=== PATIENT | female | born 1975 | race African-American/Black ===

== ENCOUNTER 2017-03-20 22:10 | Emergency (ER) | payer OTHER ==
[~2017-03-20] VITALS: Ht 170.2 cm; Wt 68.0 kg
[~2017-03-20 22:10] MED LIST: NORCO 5-325 TA1 EACH ORAL; RANITIDINE HCL150 MG ORAL
[2017-03-20] MEDS ORDERED: NKM (22:14)
--- NOTE | 2017-03-20 22:38 | Emergency Room Report ---
History of Present Illness General Chief Complaint: Abdominal Pain Source: Patient Present Illness HPI Is a 41-year-old female with a history of ulcer. She presents with reported history of epigastric pain. Pain is severe 10 out of 10. Has nausea and vomiting. No diarrhea. Nothing made it better. Any movement made it worse. Eating made it worse. Similar symptom in the past. Denies any trauma. No drug use. No radiation. Allergies: Coded Allergies: No Known Allergies (Unverified , 01/23/16) Patient History Past Medical History: see triage record, old chart reviewed Past Surgical History: other Pertinent Family History: none Social History: Denies: alcohol use Last Menstrual Period: unk Now: No Immunizations: other Reviewed Nursing Documentation: PMH: Agreed, PSxH: Agreed Nursing Documentation-PMH Past Medical History: No History, Except For Hx Cardiac Problems: Yes - ANEMIA Hx Gastrointestinal Problems: Yes - ulcers Review of Systems Eye: Denies: blurred vision, eye pain ENT: Denies: ear pain, nose congestion, throat swelling Respiratory: Denies: cough, shortness of breath Cardiovascular: Denies: chest pain, palpitations Gastrointestinal: Reports: abdominal pain, nausea, vomiting, Denies: diarrhea Musculoskeletal: Denies: back pain, joint pain Skin: Denies: rash Neurological: Denies: headache, numbness Endocrine: Denies: increased thirst, increased urine Hematologic/Lymphatic: Denies: easy bruising All Other Systems: negative except mentioned in HPI Physical Exam Vital Signs Date Time Temp Pulse Resp B/P Pulse Ox O2 Delivery O2 Flow Rate FiO2 03/20/17 22:11 98.1 90 18 140/88 98 Room Air vitals normal Sp02 EP Interpretation: reviewed, normal General Appearance: well appearing, alert, moderate distress - From pain Head: normocephalic, atraumatic Eyes: bilateral eye EOMI, bilateral eye PERRL ENT: hearing grossly normal, normal pharynx Neck: full range of motion, supple, no meningismus Respiratory: chest non-tender, lungs clear, normal breath sounds Cardiovascular #1: regular rate, rhythm, no murmur Gastrointestinal: no mass, no organomegaly, no bruit, non-distended, abnormal bowel sounds - Hypoactive, tenderness - Epigastric Musculoskeletal: back normal, gait/station normal, normal range of motion Psychiatric: mood/affect normal Skin: warm/dry Medical Decision Making Diagnostic Impression: Primary Impression: Ureteral stone with hydronephrosis Additional Impressions: UTI (urinary tract infection) Qualified Codes: N30.00 - Acute cystitis without hematuria PCP abuse Anemia Qualified Codes: D64.9 - Anemia, unspecified Proteinuria Qualified Codes: R80.9 - Proteinuria, unspecified ER Course Patient presents with abdominal pain. She has ureteral stone with obstruction and UTI. Because of this she need to be admitted to the hospital. She is otherwise stable for transfer based on insurance. I discussed the case with Dr. Bautista who accepted pt for transfer. Laboratory Tests Test 03/20/17 22:35 03/20/17 23:30 Urine Color Brown Urine Appearance Slightly cloudy Urine pH 5 (4.5-8.0) Urine Specific [place] 1.025 (1.005-1.035) Urine Protein 2+ (NEGATIVE) H Urine Glucose (UA) Negative (NEGATIVE) Urine Ketones 2+ (NEGATIVE) H Urine Occult Blood 5+ (NEGATIVE) H Urine Nitrite Negative (NEGATIVE) Urine Bilirubin Negative (NEGATIVE) Urine Urobilinogen 4 MG/DL (0.0-1.0) H Urine Leukocyte Esterase 2+ (NEGATIVE) H Urine RBC 10-15 /HPF (0 - 2) H Urine WBC 5-10 /HPF (0 - 2) H Urine Squamous Epithelial Cells Few /LPF (NONE/OCC) Urine Bacteria Moderate /HPF (NONE) H Urine Yeast Few /HPF (NONE) H Urine HCG, Qualitative Negative Urine Opiates Screen Negative (NEGATIVE) Urine Barbiturates Screen Negative (NEGATIVE) Phencyclidine (PCP) Screen Positive (NEGATIVE) H Urine Amphetamines Screen Negative (NEGATIVE) Urine Benzodiazepines Screen Negative (NEGATIVE) Urine Cocaine Screen Negative (NEGATIVE) Urine Marijuana (THC) Screen Positive (NEGATIVE) H White Blood Count 14.2 K/UL (4.8-10.8) H Red Blood Count 4.48 M/UL (4.20-5.40) Hemoglobin 10.1 G/DL (12.0-16.0) L Hematocrit 32.5 % (37.0-47.0) L Mean Corpuscular Volume 72 FL (80-99) L Mean Corpuscular Hemoglobin 22.7 PG (27.0-31.0) L Mean Corpuscular Hemoglobin Concent 31.3 G/DL (32.0-36.0) L Red Cell Distribution Width 22.6 % (11.6-14.8) H Platelet Count 257 K/UL (150-450) Mean Platelet Volume 10.5 FL (6.5-10.1) H Neutrophils (%) (Auto) % (45.0-75.0) Lymphocytes (%) (Auto) % (20.0-45.0) Monocytes (%) (Auto) % (1.0-10.0) Eosinophils (%) (Auto) % (0.0-3.0) Basophils (%) (Auto) % (0.0-2.0) Sodium Level 137 mEQ/L (135-145) Potassium Level 3.9 mEQ/L (3.4-4.9) Chloride Level 100 mEQ/L (98-107) Carbon Dioxide Level 21 mEQ/L (20-30) Anion Gap 16 (5-15) H Blood Urea Nitrogen 8 mg/dL (7-23) Creatinine 0.6 mg/dL (0.5-0.9) Estimat Glomerular Filtration Rate > 60 mL/min (>60) Glucose Level 108 mg/dL (74-106) H Calcium Level 9.2 mg/dL (8.6-10.2) Total Bilirubin 0.4 mg/dL (0.0-1.2) Aspartate Amino Transf (AST/SGOT) 24 U/L (5-40) Alanine Aminotransferase (ALT/SGPT) 9 U/L (3-33) Alkaline Phosphatase 65 U/L (35-104) Total Protein 7.1 g/dL (6.6-8.7) Albumin 3.7 g/dL (3.5-5.2) Globulin 3.4 g/dL Albumin/Globulin Ratio 1.0 (1.0-2.7) Lipase 14 U/L (< 60) Lab Results Impression labs with UTI and leukocytosis Rhythm Strip Diag. Results Rhythm Strip Time: 01:46 EP Interpretation: yes Rate: 65 Rhythm: NSR CT/MRI/US Diagnostic Results CT/MRI/US Diagnostic Results : Imaging Test Ordered: CT abdomen and pelvis Impression Read by radiologist. 6 mm proximal left ureteral stone with perinephric stranding and hydronephrosis. Fibroid uterus. Last Vital Signs Date Time Temp Pulse Resp B/P Pulse Ox O2 Delivery O2 Flow Rate FiO2 03/20/17 22:11 98.1 90 18 140/88 98 Room Air Status: improved Disposition: XFER SHT-TRM HOSP Condition: Stable TEX BOURGEOIS M.D. Mar 20, 2017 22:38
[2017-03-20] MEDS ORDERED: HYDROmorphone 1mg/ml Carpuject IVP ONE (22:45)
[2017-03-20 22:52] LABS: APPEARANCE,URINE SLIGHTLY CLOUDY; KETONES,URINE 2+ (NEGATIVE); LEUKOCYTE ESTERASE ,URINE 2+ (NEGATIVE); NITRITE,URINE NEGATIVE (NEGATIVE); PH,URINE 5 (4.5-8.0); PROTEIN,URINE 2+ (NEGATIVE); UROBILINOGEN,URINE 4 MG/DL (0.0-1.0)
[2017-03-20 23:01] LABS: BACTERIA,URINE MODERATE /HPF; SQUAMOUS EPITHELIAL CELL,UR FEW /LPF (NONE/OCC); YEAST,URINE FEW /HPF
[2017-03-20] MEDS ORDERED: cefTRIAXone 1 GM in NS 55 ML IVPB ONE (23:15)
[2017-03-20 23:50] LABS: MEAN CORPUSCULAR HEMOGLOBIN 22.7 PG (27.0-31.0); MEAN CORPUSCULAR HGB CONC 31.3 G/DL (32.0-36.0); MEAN CORPUSCULAR VOLUME 72 FL (80-99); MEAN PLATELET VOLUME 10.5 FL (6.5-10.1); PLATELET COUNT 257 K/UL (150-450); RED BLOOD COUNT 4.48 M/UL (4.20-5.40); RED CELL DISTRIBUTION WIDTH 22.6 % (11.6-14.8); WHITE BLOOD COUNT 14.2 K/UL (4.8-10.8)
[2017-03-21] MEDS ORDERED: Pantoprazole Inj IVP ONE
[2017-03-21 00:07] LABS: ALANINE AMINOTRANSFERASE 9 U/L (3-33); ANION GAP 16 (5-15); ASPARTATE AMINO TRANSFERASE 24 U/L (5-40); CALCIUM 9.2 mg/dL (8.6-10.2); CARBON DIOXIDE 21 mEQ/L (20-30); CHLORIDE 100 mEQ/L (98-107); CREATININE 0.6 mg/dL (0.5-0.9); GLOMERULAR FILTRATION RATE > 60 mL/min (>60); HEMOLYSIS 38; LIPASE 14 U/L (< 60); POTASSIUM 3.9 mEQ/L (3.4-4.9); SODIUM 137 mEQ/L (135-145); TOTAL PROTEIN 7.1 g/dL (6.6-8.7)
[2017-03-21 00:55] VITALS: BP 88/54
[2017-03-21 01:36] VITALS: BP 83/58
[2017-03-21 03:51] VITALS: BP 83/58
--- NOTE | 2017-03-21 09:26 | Diagnostic Imaging Report ---
Indications: Abdominal pain Technique: Continuous helical CT imaging of the abdomen and pelvis was performed with automatic exposure control on a Siemens sensation [address] scanner. Axial, coronal, and sagittal images were reconstructed at 3 mm slice thickness. No oral or IV contrast was administered per requesting physician's order, despite no contraindications listed. CTDI volume(s): 10 mGy Total DLP: 474 mGy-cm Findings: Comparison: Abdominal ultrasound 01/23/16. A 5 mm stone proximal left ureter. Left renal collecting system mildly dilated. No adjacent stranding. No additional stones in either kidney or ureter, nor in the urinary bladder. Right renal collecting system and ureter normal caliber.. The appendix is unremarkable. The gastrointestinal tract is normal in caliber. No extraluminal gas or fluid collections are demonstrated, aside from minimal free fluid in the pelvis. Uterus is enlarged and may contain one or more masses. Scattered arterial mural calcifications. Vascular patency indeterminate. Remainder of visualized abdominopelvic anatomy demonstrates no other obvious abnormality, though lack of oral and IV contrast limits evaluation. Irregular pleural-based linear and patchy consolidative opacities lateral aspect of left lung base with associated volume loss. Right lung base clear. No focal skeletal abnormality identified.. IMPRESSION: 5 mm obstructing stone in proximal left ureter with mild hydronephrosis. Small amount pelvic free fluid, nonspecific, may be physiologic Unremarkable appendix -- no evidence of acute appendicitis. No other evidence of acute abdominopelvic disease. Lack of oral and IV contrast limits evaluation, however, and subtle abnormalities may be missed. Repeat CT scan with full oral and IV contrast preparation recommended for more complete evaluation, as clinically indicated. Enlarged uterus, possible fibroids Arteriosclerosis Left lung base subsegmental atelectasis versus scarring with volume loss, nonspecific This correlates with [facility] preliminary report. The CT scanner at [facility] is accredited by the [employer] and the scans are performed using protocols designed to limit radiation exposure to as low as reasonably achievable to attain images of sufficient resolution adequate for diagnostic evaluation.
== END 2017-03-21 03:00 | disposition short-term general hospital (02) ==
LOC: EDUNIT# 22:10 → EDBD 22:10 → EMR 22:50
DX: N13.2 Hydronephrosis with renal and ureteral calculous obstruction (principal); N39.0 Urinary tract infection, site not specified; F16.10 Hallucinogen abuse, uncomplicated; R80.9 Proteinuria, unspecified; D64.9 Anemia, unspecified
CPT/HCPCS: 36415; 74176; 80053; 80300; 81003; 81025; 83690; 85025; 87086; 96374; 96375; 99285; C9113; J0696; J1170; J2405

== ENCOUNTER 2018-04-16 18:08 | Emergency (ER) | payer OTHER ==
[~2018-04-16] VITALS: Ht 162.6 cm; Wt 59.0 kg
[~2018-04-16 18:08] MED LIST changes: +NKM
[2018-04-16 18:16] VITALS: BP 102/63
[2018-04-16 18:58] LABS: BASOPHILS % (AUTO) 3.1 % (0.0-2.0); EOSINOPHILS % (AUTO) 3.7 % (0.0-3.0); HEMATOCRIT 33.8 % (37.0-47.0); HEMOGLOBIN 9.7 G/DL (12.0-16.0); LYMPHOCYTES % (AUTO) 27.6 % (20.0-45.0); MEAN CORPUSCULAR VOLUME 69 FL (80-99); MONOCYTES % (AUTO) 6.6 % (1.0-10.0); PLATELET COUNT 243 K/UL (150-450); RED BLOOD COUNT 4.93 M/UL (4.20-5.40); RED CELL DISTRIBUTION WIDTH 24.5 % (11.6-14.8)
[2018-04-16 19:44] LABS: ANION GAP 8 mmol/L (5-15); BLOOD UREA NITROGEN 8 mg/dL (7-18); CALCIUM 9.2 MG/DL (8.5-10.1); CARBON DIOXIDE 24 MMOL/L (21-32); CHLORIDE 105 MMOL/L (98-107); CREATININE 0.5 MG/DL (0.55-1.30); POTASSIUM 5.1 MMOL/L (3.5-5.1); SODIUM 137 MMOL/L (136-145)
[2018-04-16 19:55] LABS: ALANINE AMINOTRANSFERASE 23 U/L (12-78); ALBUMIN 3.4 G/DL (3.4-5.0); ALBUMIN/GLOBULIN RATIO 0.9 (1.0-2.7); ALKALINE PHOSPHATASE 74 U/L (46-116); ASPARTATE AMINO TRANSFERASE 42 U/L (15-37); BILIRUBIN,TOTAL 0.4 MG/DL (0.2-1.0); CREATINE KINASE 165 U/L (26-308)
[2018-04-16 20:07] VITALS: BP 123/73
--- NOTE | 2018-04-16 22:37 | Emergency Room Report ---
History of Present Illness General Chief Complaint: Generalized Weakness Source: Patient, EMS Present Illness HPI Patient brought by EMS for generalized weakness. Has been worsening for 2 weeks. States not eating well. H/O anemia and not taking her meds. No active bleeding. States not . No fevers, pain, NVD, dysuria. On period now. No change in vision. She feels thirsty and dehydrated. This has happened before and she does not remember what caused this. No SI or HI. Denies prior psych meds. States occ alcohol, no drugs. In 2017 was admitted for ureteral stone with hydronephrosis and UTI. Allergies: Coded Allergies: No Known Allergies (Unverified , 01/23/16) Patient History Past Medical History: see triage record, old chart reviewed Social History: Reports: alcohol use; Denies: drug use - see tox Social History Narrative lives by herself Last Menstrual Period: N/A Reviewed Nursing Documentation: PMH: Agreed; PSxH: Agreed Nursing Documentation-PMH Past Medical History: No History, Except For Hx Cardiac Problems: Yes - ANEMIA Hx Hypertension: No - ANEMIA, BIPOLAR Hx Gastrointestinal Problems: Yes - ulcers Review of Systems All Other Systems: negative except mentioned in HPI Physical Exam Vital Signs Date Time Temp Pulse Resp B/P (MAP) Pulse Ox O2 Delivery O2 Flow Rate FiO2 04/16/18 18:03 98.4 81 18 99/74 99 Room Air 98.4 Sp02 EP Interpretation: reviewed, normal General Appearance: non-toxic, thin, other - slow to answer Head: normocephalic Eyes: bilateral eye PERRL, bilateral eye conjunctivae pale ENT: moist mucus membranes Neck: supple Respiratory: lungs clear, normal breath sounds Cardiovascular #1: regular rate, rhythm Cardiovascular #2: 2+ radial (R) Gastrointestinal: normal inspection, normal bowel sounds, non tender, no mass, non-distended Genitourinary: no CVA tenderness Musculoskeletal: back normal, gait/station normal, normal range of motion Neurologic: alert, motor strength/tone normal, DTRs symmetric, sensory intact, speech normal - slightly slurred, no Babinski, oriented - X2 Psychiatric: no suicidal/homicidal ideation, depressed affect Skin: normal inspection, warm/dry Medical Decision Making Diagnostic Impression: Primary Impression: PCP abuse Additional Impressions: Episode of generalized weakness Anemia Qualified Codes: D50.9 - Iron deficiency anemia, unspecified Elevated TSH ER Course Patient with generalized weakness. DDx: anemia, electrolyte abnormalities, dehydration, viral syndrome, drug abuse, occult infection. Non-focal neuro therefore CT of head not indicated. Evaluation with EKG, labs. Treatment with IV hydration and cardiac monitoring. EKG without injury. Labs with anemia, slightly low TSH. Patient improved with observation and able to ambulate to bathroom unassisted. More awake. Denies SI or HI. Patient signed out to Dr. French before urine results. Laboratory Tests Test 04/16/18 18:50 White Blood Count 9.0 K/UL (4.8-10.8) Red Blood Count 4.93 M/UL (4.20-5.40) Hemoglobin 9.7 G/DL (12.0-16.0) L Hematocrit 33.8 % (37.0-47.0) L Mean Corpuscular Volume 69 FL (80-99) L Mean Corpuscular Hemoglobin 19.7 PG (27.0-31.0) L Mean Corpuscular Hemoglobin Concent 28.7 G/DL (32.0-36.0) L Red Cell Distribution Width 24.5 % (11.6-14.8) H Platelet Count 243 K/UL (150-450) Mean Platelet Volume 6.7 FL (6.5-10.1) Neutrophils (%) (Auto) 59.0 % (45.0-75.0) Lymphocytes (%) (Auto) 27.6 % (20.0-45.0) Monocytes (%) (Auto) 6.6 % (1.0-10.0) Eosinophils (%) (Auto) 3.7 % (0.0-3.0) H Basophils (%) (Auto) 3.1 % (0.0-2.0) H Sodium Level 137 MMOL/L (136-145) Potassium Level 5.1 MMOL/L (3.5-5.1) Chloride Level 105 MMOL/L (98-107) Carbon Dioxide Level 24 MMOL/L (21-32) Anion Gap 8 mmol/L (5-15) Blood Urea Nitrogen 8 mg/dL (7-18) Creatinine 0.5 MG/DL (0.55-1.30) L Estimate Glomerular Filtration Rate > 60 mL/min (>60) Glucose Level 84 MG/DL (74-106) Calcium Level 9.2 MG/DL (8.5-10.1) Total Bilirubin 0.4 MG/DL (0.2-1.0) Aspartate Amino Transferase (AST) 42 U/L (15-37) H Alanine Aminotransferase (ALT) 23 U/L (12-78) Alkaline Phosphatase 74 U/L (46-116) Total Creatine Kinase 165 U/L (26-308) Total Protein 7.3 G/DL (6.4-8.2) Albumin 3.4 G/DL (3.4-5.0) Globulin 3.9 g/dL Albumin/Globulin Ratio 0.9 (1.0-2.7) L Thyroid Stimulating Hormone (TSH) 0.331 uiU/mL (0.358-3.740) Salicylates Level 3.6 ug/mL (2.8-20) Acetaminophen Level < 2 MCG/ML (10-30) L Valproic Acid Level < 3 MCG/ML (50-100) L Serum Alcohol < 3 mg/dL EKG Diagnostic Results Rate: normal Rhythm: NSR ST Segments: no acute changes Rhythm Strip Diag. Results EP Interpretation: yes Rhythm: NSR, no PVC's, no ectopy Last Vital Signs Date Time Temp Pulse Resp B/P (MAP) Pulse Ox O2 Delivery O2 Flow Rate FiO2 04/17/18 00:08 98.1 60 18 113/76 100 Room Air 98.1 Status: improved Disposition: HOME, SELF-CARE Condition: Improved Scripts Ferrous Sulfate* (FERROUS SULFATE*) 325 Mg Tablet 325 MG ORAL DAILY, #30 TAB 0 Refills Prov: Lance French MD 04/16/18 Referrals: [facility],REFERRING (PCP) Aj Hart M.D. Apr 16, 2018 22:37
[2018-04-16 23:47] VITALS: BP 113/76
[2018-04-16] MEDS ORDERED: FERROUS SULFAT325 MG ORAL (23:55)
[2018-04-17 00:08] VITALS: BP 113/76
--- NOTE | 2018-04-17 10:44 | Diagnostic Imaging Report ---
Indication: Chest pain Technique: One view of the chest Comparison: 01/23/2016 Findings: Scarring and pleural thickening in the left mid and lower chest is again demonstrated. The lungs and right pleural space are clear. The heart size is normal. Findings are unchanged Impression: Chronic changes of the left lung and pleural space, stable since 01/23/2016. No acute process
--- NOTE | 2018-04-18 13:44 | Cardiology Report ---
APPROVED REPORT EKG Measurement Heart [id number] Normal sinus rhythm Possible Left atrial enlargement Borderline ECG
== END 2018-04-17 00:08 | disposition home or self-care (01) ==
LOC: EDBD 18:08 → EMR 18:50
DX: F16.10 Hallucinogen abuse, uncomplicated (principal); D64.9 Anemia, unspecified; R53.1 Weakness
CPT/HCPCS: 36415; 71045; 80053; 80164; 80307; 80329; 81025; 82550; 84443; 85025; 93005; 96360; 96361; 99284